=== PATIENT | male | born 1955 | race Caucasian/White ===

== ENCOUNTER → 2016-08-25 | Outpatient (CLI) | payer BC ==
[~2016-08-25] MED LIST: FINA5TAB PO; GEMF600T3 PO; HYDR-34 PO; METO-270 PO; METO50TA7 PO; NF-ESOM40C PO; PNT40TEC PO
--- OUTSIDE RECORDS SUMMARY | 2016-08-25 06:02 | XMS REPORT | Continuity of Care Document ---
Author Author [facility] Organization [facility] Address Unknown Phone Unavailable Care Team Providers Care Renal Dietitian Name Role Phone YENIFER WILLIAMSON MD PCP Insurance Providers Payer Name Policy Number Subscriber Name Relationship [id number] Dmitriy Chandler Self / Same As Patient Advance Directives Directive Response Recorded Date/Time Advance Directives No 07/08/12 8:00am Organ Donor No 07/08/12 8:00am Problems No known problems or medical conditions. Medications Medication Dose Route Sig Days/Qty Instructions Order Date Discontinued Date Status Finasteride 5 Mg PO DAILY 11/05/11 Active Gemfibrozil (Lopid) 600 Mg PO TWICE A DAY 11/05/11 Active Metoprolol Succinate 50 Mg PO BEDTIME 11/05/11 Active Esomeprazole Magnesium 40 Mg PO TWICE A DAY 11/05/11 07/05/12 Discontinued Pantoprazole Sod 40 Mg PO DAILY 07/05/12 Active Acetaminophen/Hydrocodone Bitart 1 - 2 Ea PO Q 4 - 6 HR PRN 07/08/12 Active Social History No social history. Hospital Discharge Instructions No hospital discharge instructions. Plan of Care No plan of care. Functional Status No functional status results. Allergies, Adverse Reactions, Alerts Allergen Type Severity Reaction Status Last Updated No Known Drug Allergies Active 11/05/11 Immunizations Name Given Type Date of Influenza Vaccine 04/15/12 Historical Vital Signs No known vital signs results. Results No known relevant diagnostic tests, laboratory data and/or discharge summary. Procedures No known history of procedures. Encounters Encounter Location Date/Time Registered Clinic [facility] 09/21/14 8:45pm
== END ==
LOC: PREOP 05:58
PROVIDERS: ATTEND Surgery Pediatric Surgery
DX: Z01.818 Encounter for other preprocedural examination (principal); Z12.11 Encounter for screening for malignant neoplasm of colon

== ENCOUNTER 2016-10-13 05:39 | Outpatient (CLI) | payer BC ==
[~2016-10-13] VITALS: Ht 177.8 cm; Wt 94.3 kg
[~2016-10-13 05:39] MED LIST changes: -METO-270 PO
[2016-10-13] MEDS ORDERED: METO-270 PO (13:00)
== END 2016-10-13 13:02 ==
LOC: PREOP 05:39
PROVIDERS: ATTEND Surgery Pediatric Surgery
DX: Z01.818 Encounter for other preprocedural examination (principal); Z12.11 Encounter for screening for malignant neoplasm of colon

== ENCOUNTER 2016-10-15 09:19 | Day surgery (SDC) | payer BC ==
[~2016-10-15] VITALS: Ht 177.8 cm; Wt 94.3 kg
[~2016-10-15 09:19] MED LIST changes: +METO-270 PO
[2016-10-15] MEDS ORDERED: NS IV 500 ML 500 ML ONE (09:37)
[2016-10-15] MEDS ORDERED: NALOXONE 0.4 MG/ML 1 ML (NARCAN) VIAL IVP PRN (09:45)
[2016-10-15] MEDS ORDERED: FLUMAZENIL (ROMAZICON) 0.1 MG/ML 5 ML VIAL INJ PRN (09:45)
[2016-10-15] MEDS ORDERED: NS IV 500 ML 500 ML IV ONE (09:45)
--- NOTE | 2016-10-15 09:45 | Conscious Sedation/ASA ---
Conscious Sedation Pre-Proced Time Reviewed: 09:45 ASA Class: 2 Airway Mallampati Classification: ([place] appropriate class) I. II. III, IV Lungs Heart ASA score ASA 1: a normal healthy patient ASA 2: a patient with a mild systemic disease (mid diabetes, controlled hypertension, obesity ASA 3: a patient with a severe systemic disease that limits activity (angina , COPD, prior Myocardial infarction) ASA 4: a patient with an incapacitating disease that is a constant threat to life (CHF, renal failure) ASA 5: a moribund patient not expected to survive 24 hrs. (ruptured aneurysm) ASA 6: a declared brain patient whose organs are being harvested. For emergent operations, add the letter E after the classification Grade 2 Sedation Plan: Analgesia, Amnesia, Plan communicated to team members, Discussed options with patient/fam, Discussed risks with patient/fam Note The patient is an appropriate candidate to undergo the planned procedure, sedation, and anesthesia. The patient immediately re-assessed prior to indication. ALLI GUZMÁN MD October 15, 2016 9:45 am
--- NOTE | 2016-10-15 09:46 | Progress Note-Pre Operative ---
Pre-Operative Progress Note H&P Reviewed The H&P was reviewed, patient examined and no changes noted. Date H&P Reviewed: October 15, 2016 Time H&P Reviewed: 09:45 Pre-Operative Diagnosis: screening colonoscopy ALLI GUZMÁN MD October 15, 2016 9:46 am
[2016-10-15 09:47] VITALS: BP 131/88
[2016-10-15] MEDS ORDERED: ONDANSETRON 4 MG/2 ML (SDV) Z0FRAN IV PRN (10:00)
[2016-10-15] MEDS ORDERED: HYDROcodone/APAP 5 MG/325 MG (LORTAB) TAB PO PRN (10:00)
[2016-10-15] MEDS ORDERED: morphine INJ 10 MG/ML 1ML (SYR OR VIAL) IV PRN (10:00)
[2016-10-15] MEDS ORDERED: ACETAMINOPHEN 325 MG TABLET/CAPLET (TYLENOL) PO PRN (10:00)
[2016-10-15] MEDS ORDERED: LIDOCAINE JELLY 2% (XYLOCAINE) 5 ML TUBE ONE (10:40)
[2016-10-15] MEDS ORDERED: fentaNYL INJECTION 100 MCG/2 ML AMP ONE ×2 (10:40)
[2016-10-15] MEDS ORDERED: MIDAZOLAM 2 MG/2 ML (VERSED) VIAL ONE ×5 (10:41)
[2016-10-15] MEDS: MIDAZOLAM 2 MG/2 ML (VERSED) VIAL IVP PRN ×5 (11:10→11:35)
[2016-10-15] MEDS: fentaNYL INJECTION 100 MCG/2 ML AMP IVP PRN ×4 (11:11→11:25)
[2016-10-15] MEDS ORDERED: LIDOCAINE JELLY 2% (XYLOCAINE) 5 ML TUBE TOP ONE (12:00)
[2016-10-15 12:15] VITALS: BP 128/89
--- NOTE | 2016-10-15 12:15 | Progress Note-Post Operative ---
Post-Operative Progess Note Surgeon (s)/Mailroom Manager (s) Surgeon ALLI GUZMÁN MD Mailroom Manager: none Pre-Operative Diagnosis screening colonoscopy Post-Operative Diagnosis chronic stage 2 ext and int hemorrhoids, HP polyp descending colon. Post-Op Procedure Note Date of Procedure: October 15, 2016 Name of Procedure Performed: Colonoscopy with bx. Description of the Procedure: Colonoscopy with bx. Findings of the Procedure . Anesthesia Type CS Estimated blood loss (mL): minimal Specimen(s) collected/removed desc colon polyp ALLI GUZMÁN MD October 15, 2016 12:15 pm
--- NOTE | 2016-10-15 12:16 | Discharge Inst-Surgical ---
D/C Lap Instructions-RAMIREZ Follow Up 5 years. Activity as tolerated High Fiber Diet 25g or more per day Avoid Alcohol, Caffeine, Spicy [place] and Acid foods. Drink 64 fluid oz or more of fluids per day. Symptoms to Report: Fever over 101 degree F, Nausea/Vomiting If any problems/questions: Contact your physician or go to Emergency Room ALLI GUZMÁN MD October 15, 2016 12:16 pm
[2016-10-15 12:40] VITALS: BP 121/92
[2016-10-15 12:41] VITALS: BP 121/92
--- NOTE | 2016-10-16 03:56 | OPERATIVE REPORT ---
DATE OF SERVICE: 10/15/2016 ATTENDING PHYSICIAN: Dr. Jeferson Augustine. PREOPERATIVE DIAGNOSIS: Screening colonoscopy. POSTOPERATIVE DIAGNOSIS: Mild chronic stage II external and internal hemorrhoids, small hyperplastic polyp of the descending colon. PROCEDURE: Colonoscopy with biopsy. SURGEON: Alli Guzmán MD ANESTHESIA: Conscious sedation. ESTIMATED BLOOD LOSS: Minimal. FINDINGS: Chronic stage II external and internal hemorrhoids. Prostate gland was palpable and appeared normal. There was a small polyp at the descending colon approximately 2 mm in size, which appeared benign. The remainder of the colon was normal. DISPOSITION: The patient tolerated the procedure well. INDICATIONS FOR PROCEDURE: The patient is a 61-year-old male who we have seen before in the past. We had seen him in 06/2012 for an umbilical hernia that was symptomatic and underwent an umbilical hernia repair with mesh. He is in now in need of a screening colonoscopy. His last colonoscopy was done in 2006, which was normal. He reports that he is doing well and furthermore started having normal bowel movements with no major issues with diarrhea or constipation, as well as no red blood per rectum or any dark tarry stools. He also does not report any family history of colon cancer. DESCRIPTION OF PROCEDURE: The patient was brought to the operating room, laid supine on the table. After adequate IV pain and sedating medications and conscious sedation anesthesia, a digital rectal examination was performed. Chronic stage II external and internal hemorrhoids were identified which are not actively edematous or inflamed and no bleeding. Normal sphincter tone was felt and there were no palpable masses. Prostate gland was palpable and appeared normal. The endoscope was then intubated to the anus and rectum and gently insufflated. Endoscope was then advanced to the valves of Ruiz in the rectum with no polyps or any neoplasms identified. The endoscope was then advanced to the sigmoid colon which was normal. At the descending colon, a small hyperplastic polyp approximately 2 mm in size was identified. This was biopsied and destroyed using forceps and electrocautery with visualization of good hemostasis. The endoscope was then advanced to the remainder of the descending, transverse, ascending colon and the cecum. These segments were normal. There were no other lesions identified. The endoscope was then slowly withdrawn taking a second look and suctioning residual air with no additional findings. The patient tolerated the procedure well. We will have him proceed with medical management with a high-fiber diet with at least 30 grams of fiber per day as well as copious amounts of water to promote soft stools on a daily basis. We will recommend a follow up colonoscopy in approximately 5 years. Job ID: [id number] DocumentID: [id number] Dictated Date: 10/15/2016 11:51:59 [employer] Team Member Date: 10/16/2016 02:33:09 Dictated By: ALLI GUZMÁN MD
== END 2016-10-15 12:45 | disposition home or self-care (01) ==
LOC: ENDO 09:19
PROVIDERS: ATTEND Surgery Pediatric Surgery
DX: Z12.11 Encounter for screening for malignant neoplasm of colon (principal); K63.5 Polyp of colon; K64.1 Second degree hemorrhoids; I10 Essential (primary) hypertension; E78.00 Pure hypercholesterolemia, unspecified; K21.9 Gastro-esophageal reflux disease without esophagitis; N40.0 Benign prostatic hyperplasia without lower urinary tract symptoms; Z79.899 Other long term (current) drug therapy
CPT/HCPCS: 88305

== ENCOUNTER → 2017-07-17 | Outpatient (CLI) | payer BC ==
[~2017-07-17] MED LIST changes: -METO-270 PO; +METO-387 PO
--- NOTE | 2017-07-17 15:05 | Diagnostic Imaging Report ---
INDICATION: Lump at the base of the skull on the right side. Sonographic interrogation of the area of lump was performed. FINDINGS: There is an ovoid hypoechoic solid-appearing nodule noted at the base of the skull measuring 1.7 x 1.0 x 2.8 cm. No internal vascularity is present. IMPRESSION: Nonspecific hypoechoic solid nodule at the area of palpable abnormality. Dictated by: Dictated on workstation # [id number]
== END ==
LOC: RAD 14:02
PROVIDERS: ATTEND Nurse Practitioner
DX: M89.8X8 Other specified disorders of bone, other site (principal); R22.1 Localized swelling, mass and lump, neck
CPT/HCPCS: 76536

== ENCOUNTER → 2020-02-23 | Outpatient (CLI) | payer MEDICARE ==
[~2020-02-23] MED LIST changes: -METO-387 PO; +MTP25TSR PO
--- NOTE | 2020-02-23 09:14 | Diagnostic Imaging Report ---
PROCEDURE: MRI lumbar spine. TECHNIQUE: Multiplanar, multisequence MRI of the lumbar spine was performed without contrast. INDICATION: Chronic low back pain. FINDINGS: Curvature of the lumbar spine is normal. There is grade 1 spondylolisthesis of L4 on L5. Vertebral body heights are maintained. Marrow signal intensity is unremarkable. No geographic marrow lesion is identified. There is multilevel degenerative disc disease with variable disc space narrowing and desiccation as well as marginal osteophyte formation. Conus is unremarkable at the T12-L1 level. T12-L1: Central canal is widely patent. Neural foramina are patent. L1-T2: Central canal is widely patent. The neural foramina are patent. L2-L3: There is broad-based disc/osteophyte complex flattening the ventral thecal sac. Central canal is widely patent. The lateral recesses are significantly narrowed bilaterally. There is also severe left and moderate right neural foraminal stenosis. L3-L4: Broad-based disc/osteophyte complex indents the ventral thecal sac. Central canal remains patent but there is significant narrowing of the lateral recesses bilaterally. There is significant bilateral neural foraminal stenosis. L4-L5: Broad-based disc/osteophyte complex impresses the ventral thecal sac. There is moderate to severe central canal stenosis. There is marked hypertrophic facet degenerative changes as well. This results in severe bilateral lateral recess stenosis. There is also severe bilateral neural foraminal stenosis. L5-S1: Broad-based disc/osteophyte complex indents ventral thecal sac. There is mild narrowing of the canal. Bilateral facet arthropathy is noted with small bilateral facet joint effusions. There is moderate narrowing of bilateral lateral recesses. There is mild narrowing of bilateral neural foramina. Paraspinous tissues are unremarkable. IMPRESSION: Multilevel lumbar spondylosis with multilevel central canal, lateral recess and neural foraminal stenosis described level by level above. Dictated by: Dictated on workstation # [id number]
== END ==
LOC: RAD 07:32
PROVIDERS: ATTEND Physician Assistant
DX: M48.07 Spinal stenosis, lumbosacral region (principal); M43.16 Spondylolisthesis, lumbar region; M47.817 Spondylosis without myelopathy or radiculopathy, lumbosacral region; M25.48 Effusion, other site
CPT/HCPCS: 72148

== ENCOUNTER 2022-03-05 09:26 | Outpatient (CLI) | payer MEDICARE ==
[~2022-03-05] VITALS: Ht 177.8 cm; Wt 95.3 kg
== END 2022-03-06 11:13 ==
LOC: PREOP 09:26
PROVIDERS: ATTEND Surgery
DX: Z01.818 Encounter for other preprocedural examination (principal)

== ENCOUNTER 2022-03-12 10:20 | Day surgery (SDC) | payer MEDICARE ==
[~2022-03-12] VITALS: Ht 178 cm; Wt 95.3 kg
[2022-03-12] MEDS ORDERED: LACTATED RINGERS 1,000 ML IV STA (10:21)
[2022-03-12] MEDS ORDERED: LIDOCAINE JELLY 2% 6 ML SYRINGE MM PRN (10:30)
--- NOTE | 2022-03-12 10:39 | Progress Note-Pre Operative ---
Pre-Operative Progress Note Date of Available H&P: Mar 12, 2022 Date H&P Reviewed: Mar 12, 2022 Time H&P Reviewed: 10:30 History & Physical: No changes noted Pre-Operative Diagnosis: screening ALLI GUZMÁN MD Mar 12, 2022 10:39
--- NOTE | 2022-03-12 10:41 | Discharge Inst-Surgical ---
D/C Lap Instructions-RAMIREZ Follow Up Activity as tolerated High Fiber Diet 25g or more per day Avoid Alcohol, Caffeine, Spicy [place] and Acid foods. Drink 64 fluid oz or more of fluids per day. Symptoms to Report: Fever over 101 degree F, Nausea/Vomiting If any problems/questions: Contact your physician or go to Emergency Room ALLI GUZMÁN MD Mar 12, 2022 10:41
[2022-03-12] MEDS ORDERED: ONDANSETRON 4 MG/2 ML (SDV) Z0FRAN IVP PRN (10:45)
[2022-03-12] MEDS ORDERED: ONDANSETRON 4 MG (ZOFRAN) ORAL DISSOLVE TAB PO PRN (10:45)
[2022-03-12 11:00] VITALS: BP 134/85
[2022-03-12] MEDS ORDERED: PROPOFOL INJECTION 50 ML IV ONE (11:37)
[2022-03-12 12:01] VITALS: BP 114/64
[2022-03-12 12:05] VITALS: BP 118/72
--- NOTE | 2022-03-12 12:09 | Progress Note-Post Operative ---
Post-Operative Progess Note Surgeon (s)/Door And Arrival Attendant (s) Surgeon ALLI GUZMÁN MD Door And Arrival Attendant: none Pre-Operative Diagnosis screening Post-Operative Diagnosis chronic stage 2 ext and int hemorroids. Procedure & Operative Findings Date of Procedure 03/12/22 Procedure Performed/Findings colonoscopy Anesthesia Type mac Estimated Blood Loss Estimated blood loss (mL): minimal Specimens/Packing Specimens Removed none ALLI GUZMÁN MD Mar 12, 2022 12:09
[2022-03-12 12:35] VITALS: BP 114/64
--- NOTE | 2022-03-12 13:02 | Anesthesia-General Post-Op ---
MAC Patient Condition Mental Status/LOC: Same as Preop Cardiovascular: Satisfactory Nausea/Vomiting: Absent Respiratory: Satisfactory Pain: Controlled Complications: Absent Post Op Complications Complications None Follow Up Care/Instructions Patient Instructions None needed. Anesthesiology Discharge Order Discharge Order Patient was doing well after the procedure with no complaints, stable vital signs, no apparent adverse anesthesia problems. No complications reported per nursing. DEA CARROLL DO Mar 12, 2022 13:02
--- NOTE | 2022-03-12 19:37 | OPERATIVE REPORT ---
DATE OF SERVICE: 03/12/2022 ATTENDING PRIMARY CARE PHYSICIAN: Jeferson Augustine MD PREOPERATIVE DIAGNOSIS: Screening colonoscopy with a history of colon polyp. POSTOPERATIVE DIAGNOSIS: Chronic stage II external and internal hemorrhoids. PROCEDURE: Colonoscopy. SURGEON: Dr. Guzmán. ANESTHESIA: Monitored anesthesia care. ESTIMATED BLOOD LOSS: Minimal. FINDINGS: Chronic stage II external and internal hemorrhoids. DISPOSITION: The patient tolerated the procedure well. INDICATIONS: The patient is a 66-year-old male referred over to us for screening colonoscopy. His last colonoscopy was around 2016 where a polyp was identified, removed and found to be a benign hyperplastic polyp. He otherwise is doing well. Does not report any major issues with diarrhea or constipation as well as no red blood per rectum or any dark tarry stools. He does not know of any first-degree family history of colon cancer. However, his father was diagnosed with some form of lung neoplasm. The patient was brought to the endoscopy suite, laid in the left lateral decubitus position. After adequate IV pain and sedative medications and monitored anesthesia care, the digital rectal examination was performed, which revealed chronic stage II external and internal hemorrhoids, not actively edematous nor inflamed and no bleeding. Normal sphincter tone was felt and there were no palpable masses. Prostate gland was palpable and slightly hypertrophic, however, no nodules to indicate any neoplasms. The endoscope was then intubated into the anus, rectum and gently insufflated. The endoscope was then advanced through the valves of Ruiz of the rectum with no polyps or neoplasms identified. Through the sigmoid colon, no diverticulosis identified. We then proceeded to the remainder of the descending, transverse and ascending colon to the cecum, which appeared normal with no polyps or neoplasms identified. The endoscope was then slowly withdrawn while taking a second look and suctioned residual air with no additional findings. The patient tolerated the procedure well. We will recommend the necessary lifestyle and dietary accommodation including with a high fiber diet with addition of a fiber supplement, which would equal or exceed 30 grams daily as well as significant amounts of water to promote soft stools on a daily basis. If he is asymptomatic, he does not need another colonoscopy for another 10 years. Job ID: [id number] DocumentID: [id number] Dictated Date: 03/12/2022 12:01:32 [employer] Spooler Date: 03/12/2022 19:36:21 Dictated By: ALLI GUZMÁN MD
== END 2022-03-12 12:35 | disposition home or self-care (01) ==
LOC: ENDO 10:20
PROVIDERS: ATTEND Surgery
DX: K64.1 Second degree hemorrhoids (principal); K64.4 Residual hemorrhoidal skin tags; K92.1 Melena; Z86.010 Personal history of colon polyps; N40.0 Benign prostatic hyperplasia without lower urinary tract symptoms; E66.9 Obesity, unspecified; Z68.30 Body mass index [BMI] 30.0-30.9, adult